=== PATIENT | female | born 1945 | race Caucasian/White ===

== ENCOUNTER 2022-02-21 23:58 | Inpatient (IN) | payer MEDICARE, MEDICAID ==
[~2022-02-21] VITALS: Ht 152.4 cm; Wt 72.6 kg
[2022-02-22] VITALS (7 sets, daily range): BP systolic 108–155
--- NOTE | 2022-02-22 00:15 | NUR ---
Patient to ER bed 4 to gown for evaluation. Side rails up. Report given to HUGO ALMAGUER(REG).
--- NOTE | 2022-02-22 00:40 | NUR ---
pt is aa&ox4. Georgian speaking. afebrile. c/o 10/10 pain on r side of the abdomen w/ n/v for the past 2 hrs. hx of HTN, NKA. kept pt clean and comfortable.
--- NOTE | 2022-02-22 00:40 | NUR ---
LISA Fried at bedside examining patient.
[2022-02-22] MEDS ORDERED: HYDROmorphone 1 MG/ML INJ. CARTRIDGE IM ONE (00:45)
[2022-02-22] MEDS ORDERED: NACL 0.9% 1,000 ML IV ONE (00:45)
[2022-02-22] MEDS ORDERED: ONDANSETRON HCL 4 MG/2 ML VIAL IVP ONE (00:45)
[2022-02-22] MEDS ORDERED: PANTOPRAZOLE SODIUM 40 MG/VIAL (PROTONIX) IVP ONE (01:00)
[2022-02-22 01:16] LABS: ANION GAP 11 (5-15); CALCIUM 8.6 mg/dL (8.4-11.0); CHLORIDE 104 mmol/L (98-107); CREATININE 1.28 mg/dL (0.55-1.30); GLUCOSE 145 mg/dL (70-99); POTASSIUM 3.2 mmol/L (3.5-5.1); UREA NITROGEN, BLOOD 25 mg/dL (8-21)
[2022-02-22 01:25] LABS: HEMATOCRIT 34.1 % (36-48); HEMOGLOBIN 11.3 g/dL (12.0-16.0); MEAN CORPUSCULAR HEMOGLOBIN 29 pg (27-31); MEAN CORPUSCULAR HGB CONC 33 % (32-36); MEAN CORPUSCULAR VOLUME 89 fL (79.0-98.0); RED BLOOD CELL COUNT(AUTO) 3.86 MIL/uL (4.2-6.2); WHITE BLOOD COUNT (AUTO) 11.3 K/uL (4.8-10.8)
[2022-02-22 01:26] LABS: PLATELET COUNT (AUTO) 281 K/uL (130-430); RED CELL DISTRIBUTION WIDTH 15.6 % (9.0-15.0)
[2022-02-22 01:28] LABS: BASOPHILS % (AUTO) 0.3 % (0.0-2.0); EOSINOPHILS # (AUTO) 0.1 K/uL (0.0-0.4); EOSINOPHILS % (AUTO) 0.6 % (0.0-4.0); LYMPHOCYTES # (AUTO) 1.1 K/uL (1.0-5.5); LYMPHOCYTES % (AUTO) 9.3 % (20.5-51.5); MONOCYTES # (AUTO) 0.5 K/uL (0.0-1.0); NEUTROPHILS # (AUTO) 9.9 K/uL (1.8-7.7); NEUTROPHILS % (AUTO) 85.8 % (40.0-70.0)
[2022-02-22 01:30] LABS: ALANINE AMINOTRANSFERASE 21 U/L (12-78); ALBUMIN 3.9 g/dL (3.4-4.8); ASPARTATE AMINOTRANSFERASE 19 U/L (10-37); LIPASE 389 U/L (73-393); TOTAL BILIRUBIN 0.1 mg/dL (0.0-1.0)
--- NOTE | 2022-02-22 01:45 | NUR ---
US being done at bedside.
[2022-02-22] MEDS ORDERED: MAGNESIUM SULFATE 50 ML IV ONE (02:15)
[2022-02-22] MEDS ORDERED: POTASSIUM CHLORIDE 20 MEQ TAB.PRT.SR PO ONE (02:15)
--- NOTE | 2022-02-22 03:10 | NUR ---
PT'S DAUGHTER LEFT AND BROUGHT PT'S BELONGINGS W/ HER. PER OLAYINKA DAUGHTER, KEEP HER UPDATED & CALL HER @ [phone]
[2022-02-22 04:05] LABS: BILIRUBIN,URINE NEGATIVE (NEGATIVE); BLOOD, URINE NEGATIVE (NEGATIVE); CLARITY/URINE CLEAR (CLEAR); COLOR,URINE YELLOW (YELLOW); GLUCOSE,URINE NEGATIVE (NEGATIVE); KETONES,URINE 1+ (NEGATIVE); LEUKOCYTE ESTERASE ,URINE 1+ (NEGATIVE); NITRITE, URINE NEGATIVE (NEGATIVE); PROTEIN URINE NEGATIVE (NEGATIVE); UROBILINOGEN,URINE 0.2 (0.2-1.0)
[2022-02-22] MEDS ORDERED: HYDROmorphone 1 MG/ML INJ. CARTRIDGE IVP ONE (04:15)
[2022-02-22 04:37] LABS: BACTERIA,URINE RARE /HPF (None Seen); RBC,URINE NONE SEEN /HPF (0-3)
[2022-02-22 04:38] LABS: MUCUS,URINE None Seen /LPF (None Seen); YEAST,URINE Rare /HPF (None Seen)
[2022-02-22] MEDS ORDERED: HYDROmorphone 1 MG/ML INJ. CARTRIDGE IVP PRN (05:00)
[2022-02-22] MEDS ORDERED: ONDANSETRON HCL 4 MG/2 ML VIAL IVP PRN (05:00)
[2022-02-22] MEDS ORDERED: ASA81 PO (05:00)
--- NOTE | 2022-02-22 05:01 | NUR ---
Admit bed requested Patient will be admitted to care of Dr. Arroyo. Admitted to md surg unit. Diagnosis Intractable Abdominal Pain Inpatient (Yes or No) YES Observation (Yes or No) NO Orientation concerns or request close to nursing station (Yes or No) NO Covid Status NEGATIVE On vent or bipap NO Isolation requirements NO Needs a sitter NO From Home (Yes or if No enter name of facility) YES Requires Dialysis (Yes or No) NO Med Rec Completed (Yes of No) YES
--- NOTE | 2022-02-22 05:03 | NUR ---
PT IN BD, ASLEEP. NAD, AFEBRILE. IV SL ON R AC INTACT, NO S/S INFILTRATION, NO PHLEBITIS. KEPT PT CLEAN & COMFORTABLE. SAFE & HAZARD FREE ENVIRONMENT PROVIDED.
--- NOTE | 2022-02-22 05:24 | NUR ---
REPORT GIVEN TO TRIPP REAL VIA PHONE FR MS
--- NOTE | 2022-02-22 05:45 | NUR ---
received from the ER. pt admitted for abd pain. pt arrived to the med/surg unit sleep yet easily to arouse. pt stated she has no c/o pain at this time. vitals taken and within normal limits. resp even while on RA 96%. skin warm to touch and clean and dry. 20g to right arm patent and intact. pt has no personal belongings with her. family took all items. educate pt how to use call light and to call if needs assistance. place bed to lowest position.
--- NOTE | 2022-02-22 05:49 | NUR ---
Patient will be admitted to care of [facility]. Admitted to mED SURG unit. Will go to room 110A. Belongings list completed. Complete and up to date summary report printed. SBAR report to be given at bedside with opportunity for questions.
--- NOTE | 2022-02-22 09:35 | NUR ---
CONSULT:Alison INTRACTABLE ABDOMINAL PAIN DR APONTE [id number] S/W:MELISSA
--- NOTE | 2022-02-22 09:37 | NUR ---
CONSULT: SURGERY INTRACTABLE ABD PAIN OLAMIDE LOVELL [id number] S/W: JAMAL
--- NOTE | 2022-02-22 10:57 | NUR ---
PAGED DR PHAN PAGED X2 FOR PAIN MED OREDER.SPOKE TO BRANDI IN EXCHANGE.WAITING FOR CALL BACK
[2022-02-22] MEDS ORDERED: HYDROmorphone 2 MG/ML VIAL IVP PRN (11:15)
--- NOTE | 2022-02-22 11:32 | NUR ---
pain PT C/O OF ABD PAIN 04/11. BP 138/92 ,RES 20, O2 SATURATION 95% ON RA. PAIN MED DILAUDID 2 MG IV PUSH GIVEN OVER 5 MINUTES. PT O2 SATURATION DROOPED TO 88%. PLACED ON 2 LITER OXYGEN PER NASAL CANNULA. RES 18.BP 132/94. 02 SATURATION 96% . DENIES ANY SOB . RES UNLABORED. NOT IN ANY ACUTE DISTRESS. DR PHAN NOTIFIED.
[2022-02-22] MEDS: D5/0.45 NS 1,000 ML IV SCH (12:00)
[2022-02-22] MEDS ORDERED: NALOXONE HCL 0.4 MG/ML AMP (NARCAN) IVP PRN (12:00)
[2022-02-22] MEDS ORDERED: DIATR MEGLU/DIATRIZ SOD 30 ML SOLUTION PO ONE (12:18)
[2022-02-22] MEDS ORDERED: iohexoL 240 mgI/mL, 50 ML INFUS..BTL IV ONE (14:08)
[2022-02-22] MEDS: PIPERACILLIN/TAZO 2.25G/DEX-IS 50 ML IV SCH ×2 (15:34→21:18)
--- NOTE | 2022-02-22 19:40 | NUR ---
PM ASSESSMENT; -Pt is laying in bed, dyspnea upon activity. room air [id number]=79%. IVF infusing well, no s/s any infiltration noted. Side rails x3, call light w/in reach. All safety measures in place. Discussed poc,all safety measures, and explained to pt not to have pain medication after midnight for HIDA scan, pt verbalized understanding. Pt is able to show good return demonstration of how to use call light when needs assistance or experiencing pain or any acute distress. Will cont to monitor pt.
--- NOTE | 2022-02-22 20:50 | NUR ---
NOTES; OH IS AT NURSES' STATION -Will check order and follow up
[2022-02-22] MEDS: HYDROmorphone 1 MG/ML INJ. CARTRIDGE IVP PRN (21:19)
--- NOTE | 2022-02-23 | NUR ---
ROUNDS; KEEP NPO STATUS AFTER MIDNIGHT PER DR. FREIRE -Pt awakes, laying in bed comfortably. Removed food and fluid after midnight after explaining Dr. Freire order, pt verbalized understanding. IVF infusing well, no s/s any infiltration noted. Side rails x3, call light w/in reach. All safety measures in place. Cont to monitor pt.
[2022-02-23 01:28] VITALS: BP_SYST 128
[2022-02-23] MEDS: D5/0.45 NS 1,000 ML IV SCH ×3 (01:28→22:42)
[2022-02-23] MEDS: HYDROmorphone 1 MG/ML INJ. CARTRIDGE IVP PRN ×4 (01:28→22:41)
--- NOTE | 2022-02-23 01:28 | NUR ---
ROUNDS; PAIN MGMT; -Assisted pt from bed to bathroom and returned to bed safely with slow steady gaits. Pt is c/o abdom pain gave Dilaudid 1mg IVP and informed pt that can't have pain medication anymore d/t HIDA scan in process, pt verbalized understanding. IVF infusing well, no s/s any infiltration noted. Side rails x3, call light w/in reach. All safety measures in place. Cont to monitor pt.
--- NOTE | 2022-02-23 02:02 | NUR ---
Consultation Paged Reason for Consultation: pre-op Was consult called: Y Person who was notified: Yuko Consulting Physician: Dr. Ocampo Ordering Physician: Dr. Mcadams
--- NOTE | 2022-02-23 04:12 | NUR ---
ROUNDS; -Pt is still asleep. No s/s acute distress noted. Bed alarmed, Side rails x2, call light w/in reach. All safety measures in place. Cont to monitor pt.
[2022-02-23] MEDS: PIPERACILLIN/TAZO 2.25G/DEX-IS 50 ML IV SCH ×3 (05:04→21:35)
--- NOTE | 2022-02-23 05:06 | NUR ---
BATHROOM; -Assisting pt from bed to bathroom and returned to bed safely with dyspnea upon exertion,placed 2l n/c oxy,i3gac=91%. IVF infusing well, no s/s any infiltration noted. Side rails x3, call light w/in reach. All safety measures in place. Cont to monitor pt.
--- NOTE | 2022-02-23 06:34 | NUR ---
CLOSING NOTES; NPO STATUS AFTER MIDNIGHT -Assisted patient from bed to bathroom and returned to bed safely. Pt is sob upon exertion. Placed pt on oxy w/ 2 L n/c oxy. IVF infusing well, no s/s any infiltration noted. Side rails x3, call light w/in reach. All safety measures in place. Pt's condition stable. Will endorse to next nurse to cont care.
[2022-02-23 06:44] LABS: BASOPHILS % (AUTO) 0.1 % (0.0-2.0); EOSINOPHILS % (AUTO) 0.1 % (0.0-4.0); HEMATOCRIT 32.5 % (36-48); HEMOGLOBIN 10.8 g/dL (12.0-16.0); LYMPHOCYTES # (AUTO) 1.2 K/uL (1.0-5.5); LYMPHOCYTES % (AUTO) 9.2 % (20.5-51.5); MEAN CORPUSCULAR HEMOGLOBIN 29 pg (27-31); MEAN CORPUSCULAR HGB CONC 33 % (32-36); MEAN CORPUSCULAR VOLUME 88 fL (79.0-98.0); MONOCYTES % (AUTO) 7.4 % (1.7-9.3); NEUTROPHILS # (AUTO) 11.3 K/uL (1.8-7.7); NEUTROPHILS % (AUTO) 83.2 % (40.0-70.0); PLATELET COUNT (AUTO) 256 K/uL (130-430); RED BLOOD CELL COUNT(AUTO) 3.69 MIL/uL (4.2-6.2); WHITE BLOOD COUNT (AUTO) 13.6 K/uL (4.8-10.8)
[2022-02-23 07:05] LABS: ANION GAP 9 (5-15); CALCIUM 8.2 mg/dL (8.4-11.0); CHLORIDE 101 mmol/L (98-107); CREATININE 1.25 mg/dL (0.55-1.30); GLUCOSE 109 mg/dL (70-99); POTASSIUM 3.9 mmol/L (3.5-5.1); UREA NITROGEN, BLOOD 20 mg/dL (8-21)
[2022-02-23] MEDS ORDERED: hydrALAZINE HCL 20 MG/ML VIAL IVP PRN (08:30)
[2022-02-23 08:53] VITALS: BP_SYST 125
[2022-02-23 09:04] LABS: ALBUMIN 3.3 g/dL (3.4-4.8); BILIRUBIN,DIRECT 0.1 mg/dL (0.0-0.3); TOTAL BILIRUBIN 0.3 mg/dL (0.0-1.0)
[2022-02-23] MEDS: IPRATROPIUM/ALBUTEROL SULFATE 3 ML AMPUL.NEB (DUONEB) INH SCH ×4 (10:50→23:13)
[2022-02-23 17:40] VITALS: BP_SYST 129
--- NOTE | 2022-02-23 17:42 | NUR ---
pt asked for pain meds and daughter is at bedside currently , meds given and will follow up
--- NOTE | 2022-02-23 18:07 | NUR ---
0800= received report dn assessed pt adn pt wa ambulating to restroom. pt tolerated well. no c/o pain at this time. care resumed 1200= pt tolerated all meds well and pt ambulated to the restroom again well. family has been here to visit on several occasions. pain meds given and pt is comfortable and care resumed . 1600= family visit again and ptis still npo waiting for hydroscan procedure to be performed. dilaudid given again and pt is comfortable now with daughter at bedside
[2022-02-23 20:00] VITALS: BP_SYST 141
[2022-02-24 00:21] VITALS: BP_SYST 131
[2022-02-24] MEDS: HYDROmorphone 1 MG/ML INJ. CARTRIDGE IVP PRN ×6 (02:46→22:57)
[2022-02-24] MEDS: IPRATROPIUM/ALBUTEROL SULFATE 3 ML AMPUL.NEB (DUONEB) INH SCH ×7 (03:00→23:10)
[2022-02-24] MEDS: PIPERACILLIN/TAZO 2.25G/DEX-IS 50 ML IV SCH ×3 (06:01→22:56)
[2022-02-24 06:38] LABS: BASOPHILS % (AUTO) 0.1 % (0.0-2.0); EOSINOPHILS % (AUTO) 0.3 % (0.0-4.0); HEMATOCRIT 30.2 % (36-48); HEMOGLOBIN 10.3 g/dL (12.0-16.0); LYMPHOCYTES # (AUTO) 1.3 K/uL (1.0-5.5); LYMPHOCYTES % (AUTO) 12.7 % (20.5-51.5); MEAN CORPUSCULAR HEMOGLOBIN 30 pg (27-31); MEAN CORPUSCULAR HGB CONC 34 % (32-36); MEAN CORPUSCULAR VOLUME 88 fL (79.0-98.0); MONOCYTES # (AUTO) 0.8 K/uL (0.0-1.0); MONOCYTES % (AUTO) 7.7 % (1.7-9.3); NEUTROPHILS # (AUTO) 7.9 K/uL (1.8-7.7); NEUTROPHILS % (AUTO) 79.2 % (40.0-70.0); PLATELET COUNT (AUTO) 233 K/uL (130-430); RED BLOOD CELL COUNT(AUTO) 3.43 MIL/uL (4.2-6.2); RED CELL DISTRIBUTION WIDTH 15.6 % (9.0-15.0); WHITE BLOOD COUNT (AUTO) 9.9 K/uL (4.8-10.8)
[2022-02-24 07:08] LABS: ALANINE AMINOTRANSFERASE 29 U/L (12-78); AMYLASE 28 U/L (0-100); ANION GAP 9 (5-15); ASPARTATE AMINOTRANSFERASE 21 U/L (10-37); CALCIUM 8.3 mg/dL (8.4-11.0); CHLORIDE 101 mmol/L (98-107); CREATININE 0.91 mg/dL (0.55-1.30); GLUCOSE 119 mg/dL (70-99); LIPASE 89 U/L (73-393); POTASSIUM 3.5 mmol/L (3.5-5.1); THYROID STIMULATING HORMONE 2.37 uIu/mL (0.36-3.74); TOTAL BILIRUBIN 0.3 mg/dL (0.0-1.0); UREA NITROGEN, BLOOD 13 mg/dL (8-21)
[2022-02-24 08:26] VITALS: BP_SYST 122
[2022-02-24 16:00] VITALS: BP_SYST 127
--- NOTE | 2022-02-24 16:40 | NUR ---
Logo Admission Assessment - Care Management Last Saved By: Jolie Weston Last Saved On: 02/24/2022 4:40 PM (PT) Created By: Jolie Weston Created On: 02/24/2022 4:39 PM (PT) Patient Information Patient Name: KACEY WORLEY [address]: [address] [place] [address] [place] [address] SSN: : 1945 (age 76 years) Work Phone: [phone] Gender: Female Alternative Phone: Marital Status: Other Race: DECLINED TO STATE Race 2: Ethnicity: or or Kinyarwanda Origin Ethnicity 2: Patient's Information Who was Interviewed? Answers: Other - Specify (Caregiver, Family, Friend etc) Notes: dtra Guillen What language does the patient speak? Answers: [place] Citizen Admitting Facility Answers: *[facility] [[id number]] Admitting Diagnosis intractable abd. pain Advanced Care Planning (check all that apply) Answers: Patient does NOT have advanced Care Planning. Additional Patient Notes covid vaccine: x2 History and Prior Level of Function DME--PRIOR to Admission: Answers: Cane Cognitive--PRIOR to Admission: Answers: Alert & Orientated Home Setting--PRIOR to Admission: Answers: Private Home Notes: [facility] lives / dtra Was patient receiving Home Health Services prior to Admission? Answers: No Potential Barriers to Discharge Anticipated Discharge Disposition Answers: Home Notes: home health to be determine at discharge good family support Does the patient have any potential barriers to DC? (indicate barrier & plan to address) Answers: NO, anticipate DC to previous living situations, no additional services anticipated Signature Signature: Signature Date Signed: 02/24/2022 4:40 PM (PT) Signed By: Jolie Weston Position: Inpatient Coating Machine Operator Helper Pager Number: Allscripts Generated (Scan) Page 1 of 2021 Giferent. [Production([id number])]
--- NOTE | 2022-02-24 16:50 | NUR ---
0730 Pt. sleeping, vss, call light in reach, awaiting HIDA scan 0900 HIDA scan machine still down, pt. taken off NPO 1200 No apparent surgery for today, vss, call light in reach 1400 Pt. sleeping, new iv site to right wrist 22 g Addendum: 02/24/22 at 1829 by [facility] [place], TRIPP ALMAGUER 1800 Pt. needs met this shift, medicated q4 for pain with good results. No n/v. Tolerating her diet. No orders for surgery. Labs for in the morning, pt. vss, no acute distress
[2022-02-24 20:00] VITALS: BP_SYST 137
[2022-02-25] VITALS: BP_SYST 128
[2022-02-25] MEDS: D5/0.45 NS 1,000 ML IV SCH ×3 (02:49→20:26)
[2022-02-25] MEDS: HYDROmorphone 1 MG/ML INJ. CARTRIDGE IVP PRN ×2 (02:49→06:42)
[2022-02-25] MEDS: IPRATROPIUM/ALBUTEROL SULFATE 3 ML AMPUL.NEB (DUONEB) INH SCH ×5 (03:00→19:50)
[2022-02-25] MEDS: PIPERACILLIN/TAZO 2.25G/DEX-IS 50 ML IV SCH ×3 (05:06→21:21)
--- NOTE | 2022-02-25 06:39 | NUR ---
CLOSING NOTE PATIENT IN BED, RESTING. NO S/S OF ACUTE DISTRESS. BREATHING EVEN AND UNLABORED. IVF INFUSING WELL. IV SITE PATENT, NO SIGNS OF INFILTRATION OR INFECTION NOTED. ALL NEEDS MET THROUGHOUT SHIFT. FALL, SAFETY PRECAUTIONS MAINTAINED THROUGHOUT SHIFT. WILL CONTINUE TO MONITOR UNTIL PATIENT CARE IS ENDORSED TO ONCOMING DAYSHIFT NURSE.
[2022-02-25 06:49] LABS: BASOPHILS % (AUTO) 0.6 % (0.0-2.0); EOSINOPHILS # (AUTO) 0.1 K/uL (0.0-0.4); EOSINOPHILS % (AUTO) 1.8 % (0.0-4.0); HEMATOCRIT 28.9 % (36-48); HEMOGLOBIN 9.8 g/dL (12.0-16.0); LYMPHOCYTES # (AUTO) 1.1 K/uL (1.0-5.5); MEAN CORPUSCULAR HEMOGLOBIN 30 pg (27-31); MEAN CORPUSCULAR HGB CONC 34 % (32-36); MEAN CORPUSCULAR VOLUME 88 fL (79.0-98.0); MONOCYTES # (AUTO) 0.7 K/uL (0.0-1.0); MONOCYTES % (AUTO) 9.8 % (1.7-9.3); NEUTROPHILS # (AUTO) 5.4 K/uL (1.8-7.7); NEUTROPHILS % (AUTO) 72.8 % (40.0-70.0); PLATELET COUNT (AUTO) 244 K/uL (130-430); RED BLOOD CELL COUNT(AUTO) 3.27 MIL/uL (4.2-6.2); RED CELL DISTRIBUTION WIDTH 15.4 % (9.0-15.0); WHITE BLOOD COUNT (AUTO) 7.4 K/uL (4.8-10.8)
--- NOTE | 2022-02-25 07:20 | NUR ---
rn opening note report was endorsed by night nurse. patient appears to be resting with both eyes closed no signs of any distress,visible breathing noted. no other needs at this time.
[2022-02-25 07:52] VITALS: BP_SYST 152
[2022-02-25 08:00] VITALS: BP_SYST 152
[2022-02-25] MEDS ORDERED: MAGNESIUM CITRATE 300 ML ORAL SOLUTION PO PRN (10:15)
--- NOTE | 2022-02-25 10:23 | NUR ---
md at bedside orders were received, family is at bedside. educated scrap iron cutter light for assistance. no other needs at this time.
[2022-02-25] MEDS ORDERED: OXYCODONE/ACETAMINOPHEN 5-325 TABLET PO PRN (10:30)
--- NOTE | 2022-02-25 11:00 | NUR ---
PAIN MEDICATION/ TRANSFERRED VIA WHEELCHAIR FOR MRI PATIENT IS COMPLAINING OF PAIN MEDICATED PER ODER. NO OTHER NEEDS AT THIS TIME.
[2022-02-25 12:00] VITALS: BP_SYST 134
--- NOTE | 2022-02-25 13:00 | NUR ---
BOWEL MOVEMENT PATIENT STATES SHE HAD A BOWEL MOVEMENT. PATIENT AMBULATED BACK TO BED GAIT IS STEADY. PATIENT EDUCATED PIPE FITTER FIRE SPRINKLER SYSTEMS LIGHT FOR ASSISTANCE. CALL LIGHT IS WITH HER NO OTHER NEEDS AT THIS TIME.
--- NOTE | 2022-02-25 14:31 | NUR ---
MEDICATION PATIENTS SCHEDULED MEDICATION GIVEN PER ORDER. PATIENT IS AWAKE AND ALERT LAYING IN BED. COMPLAINS OF ANXIETY PAGING MD FOR ORDERS. EDUCATED DELINEATOR LIGHT FOR ASSISTANCE. CALL LIGHT IS WITH HER.
--- NOTE | 2022-02-25 14:46 | NUR ---
CM: HIDA scan not in service. Per dr Montelongo: to transfer pt to the approved hp per HCP/[facility] for the test. I contacted Betty Joshua/dcp at [facility] , she is arranging the testing time and ambulance transfer. She will update me, or call nursing unit if after 1430 pm. TRIPP Esposito made aware.
[2022-02-25] MEDS: ALPRAZolam 0.25 MG TABLET PO PRN ×2 (15:13→21:21)
[2022-02-25 15:15] VITALS: BP_SYST 154
--- NOTE | 2022-02-25 15:23 | NUR ---
SPOKE WITH OUR TECH HE IS GOING TO BE ABLE TO DO HYDA SCAN TONIGHT, HE HAS TO ORDER THE MEDICATION SHOULD BE ABLE TO GET IT 3 HOURS FROM NOW. PATIENT PLACED NPO AND NO PAIN MEDICATION TO BE GIVEN. PATIENT MADE AWARE.
--- NOTE | 2022-02-25 17:29 | NUR ---
TAKEN TO HYDA SCAN VIA WHEEL CHAIR
--- NOTE | 2022-02-25 19:15 | NUR ---
OPENING NOTE REPORT RECEIVED FROM DAYSHIFT NURSE. PATIENT RECEIVED LYING IN BED, AWAKE, ALERT, WATCHING TV, NO S/S OF ACUTE DISTRESS. PATIENT JUST RECEIVED PAIN MEDICATION FROM [facility]. BREATHING EVEN AND UNLABORED. IVF INFUSING WELL, IV SITE PATENT, NO SIGNS OF INFILTRATION OR INFECTION NOTED. CALL LIGHT WITH PATIENT. BED IS LOCKED AND AT LOWEST POSITION. WILL CONTINUE TO MONITOR.
[2022-02-25] MEDS: OXYCODONE/ACETAMINOPHEN 5-325 TABLET PO PRN (19:20)
--- NOTE | 2022-02-25 19:28 | NUR ---
rn closing note report was endorsed to night nurse. patient is back from [facility] medicated for pain and provided with food per request. patient educated to use call light for assistance. call light is with her no other needs at this time.
[2022-02-25 20:00] VITALS: BP_SYST 165
--- NOTE | 2022-02-25 21:30 | NUR ---
IV INSERTED PREVIOUS IV REMOVED, CATHETER FULLY INTACT, NO ACTIVE BLEEDING NOTED. NEW IV INSERTED AT RIGHT WRIST, 20G. PATIENT TOLERATED WELL. IVF INFUSING WELL. ALL NEEDS MET. WILL CONTINUE TO MONITOR.
[2022-02-26] VITALS: BP_SYST 130
[2022-02-26] MEDS: IPRATROPIUM/ALBUTEROL SULFATE 3 ML AMPUL.NEB (DUONEB) INH SCH ×6 (00:16→23:30)
[2022-02-26] MEDS: OXYCODONE/ACETAMINOPHEN 5-325 TABLET PO PRN ×4 (01:18→21:16)
[2022-02-26] MEDS: ALPRAZolam 0.25 MG TABLET PO PRN ×2 (05:10→22:06)
[2022-02-26] MEDS: PIPERACILLIN/TAZO 2.25G/DEX-IS 50 ML IV SCH ×3 (05:10→21:17)
--- NOTE | 2022-02-26 06:19 | NUR ---
CLOSING NOTE PATIENT IN BED, RESTING WELL. NO S/S OF ACUTE DISTRESS. BREATHING EVEN AND UNLABORED. IVF INFUSING WELL. ALL NEEDS MET THROUGHOUT SHIFT. FALL, SAFETY PRECAUTIONS MAINTAINED THROUGHOUT SHIFT. WILL CONTINUE TO MONITOR UNTIL PATIENT CARE IS ENDORSED TO ONCOMING DAYSHIFT NURSE.
[2022-02-26 08:00] VITALS: BP_SYST 138
[2022-02-26] MEDS: D5/0.45 NS 1,000 ML IV SCH ×2 (09:23→22:35)
[2022-02-26 10:43] VITALS: BP_SYST 138
[2022-02-26 12:00] VITALS: BP_SYST 130
[2022-02-26 12:40] LABS: ANION GAP 4 (5-15); CALCIUM 8.3 mg/dL (8.4-11.0); CHLORIDE 106 mmol/L (98-107); CREATININE 0.78 mg/dL (0.55-1.30); GLUCOSE 99 mg/dL (70-99); POTASSIUM 3.6 mmol/L (3.5-5.1); UREA NITROGEN, BLOOD 9 mg/dL (8-21)
[2022-02-26 16:00] VITALS: BP_SYST 156
--- NOTE | 2022-02-26 19:15 | NUR ---
OPENING NOTE PATIENT RECEIVED LYING IN BED, RESTING. NO S/S OF ACUTE DISTRESS. BREATHING EVEN AND UNLABORED. IV SITE PATENT, NO SIGNS OF INFILTRATION OR INFECTION NOTED. CALL LIGHT WITH PATIENT. BED IS LOCKED AND AT LOWEST POSITION. WILL CONTINUE TO MONITOR.
[2022-02-26 20:00] VITALS: BP_SYST 152
[2022-02-27] VITALS: BP_SYST 150
[2022-02-27] MEDS: OXYCODONE/ACETAMINOPHEN 5-325 TABLET PO PRN ×2 (03:20→12:24)
[2022-02-27] MEDS: IPRATROPIUM/ALBUTEROL SULFATE 3 ML AMPUL.NEB (DUONEB) INH SCH ×3 (03:42→11:00)
[2022-02-27] MEDS: PIPERACILLIN/TAZO 2.25G/DEX-IS 50 ML IV SCH (05:37)
--- NOTE | 2022-02-27 06:24 | NUR ---
CLOSING NOTE PATIENT IN BED, NO S/S OF ACUTE DISTRESS NOTED. BREATHING EVEN AND UNLABORED. IVF INFUSING WELL, IV SITE PATENT, NO SIGNS OF INFILTRATION OR INFECTION NOTED. ALL NEEDS MET THROUGHOUT SHIFT. FALL, SAFETY PRECAUTIONS MAINTAINED THROUGHOUT SHIFT. WILL CONTINUE TO MONITOR UNTIL PATIENT CARE IS ENDORSED TO ONCOMING DAYSHIFT NURSE.
[2022-02-27 08:00] VITALS: BP_SYST 118
[2022-02-27] MEDS ORDERED: SIMETHICONE 40 MG/0.6 ML ML ONE (09:31)
[2022-02-27] MEDS ORDERED: fentaNYL CITRATE/PF 100 MCG/2 ML AMP ONE (09:31)
[2022-02-27] MEDS ORDERED: MIDAZOLAM HCL 5 MG/5 ML VIAL ONE (09:32)
[2022-02-27] MEDS ORDERED: BENZOCAINE 20% 0.5mL UD SPRAY MM ONE (09:33)
[2022-02-27 12:00] VITALS: BP_SYST 132
[2022-02-27] MEDS ORDERED: SUCRALFATE 1 GM TABLET PO ONE (12:15)
[2022-02-27] MEDS ORDERED: PANTOPRAZOLE SODIUM 40 MG TAB PO ONE (12:15)
[2022-02-27 14:38] VITALS: BP_SYST 137
[2022-02-27] MEDS ORDERED: SUCRALFATE 1 GM TABLET PO SCH (17:00)
[2022-02-27] MEDS ORDERED: PANTOPRAZOLE SODIUM 40 MG TAB PO SCH (21:00)
== END 2022-02-27 15:40 | disposition home or self-care (01) | DRG 384 ==
LOC: SED 23:58 → SMU 02-22 04:51
PROVIDERS: ADMIT Internal Medicine; ATTEND Internal Medicine
PROC: 0DB78ZX Excision of Stomach, Pylorus, Via Natural or Artificial Opening Endoscopic, Diagnostic (ICD-10-PCS; 2022-02-27)
PROC: 0DB98ZX Excision of Duodenum, Via Natural or Artificial Opening Endoscopic, Diagnostic (ICD-10-PCS; principal; 2022-02-27 11:30)
DX: K25.9 Gastric ulcer, unspecified as acute or chronic, without hemorrhage or perforation (principal); K59.00 Constipation, unspecified; K29.60 Other gastritis without bleeding; K29.80 Duodenitis without bleeding; G43.909 Migraine, unspecified, not intractable, without status migrainosus; E66.01 Morbid (severe) obesity due to excess calories; E03.9 Hypothyroidism, unspecified; K44.9 Diaphragmatic hernia without obstruction or gangrene; I10 Essential (primary) hypertension; D72.829 Elevated white blood cell count, unspecified; J44.9 Chronic obstructive pulmonary disease, unspecified; F17.200 Nicotine dependence, unspecified, uncomplicated; Z20.822 Contact with and (suspected) exposure to COVID-19; K82.8 Other specified diseases of gallbladder; Z79.82 Long term (current) use of aspirin; Z79.899 Other long term (current) drug therapy; Z68.31 Body mass index [BMI] 31.0-31.9, adult; Z87.11 Personal history of peptic ulcer disease; Z90.710 Acquired absence of both cervix and uterus
CPT/HCPCS: 36415; 43239; 71045; 74181; 76376; 76705; 78226; 80048; 80053; 80076; 81000; 82150; 83605; 83690; 83880; 84443; 84484; 85025; 87081; 88305; 88312; 88313; 93005; 93306; 94640; 94760; 96372; 96374; 96375; 99285; A9537; C9113; J0360; J1170; J2250; J2405; J2543; J3010; J3475; Q9964; Q9966; Q9967

== ENCOUNTER 2023-11-28 18:29 | Inpatient (IN) | payer MEDICARE, MEDICAID ==
[~2023-11-28] VITALS: Ht 152.4 cm; Wt 72.2 kg
[2023-11-28 18:31] VITALS: BP_SYST 118; PULSE 98; RESP 20; TEMP 98.2; O2SAT 95
[2023-11-28 19:12] LABS: BASOPHILS # (AUTO) 0.1 K/uL (0.0-0.2); BASOPHILS % (AUTO) 0.9 % (0.0-2.0); EOSINOPHILS # (AUTO) 0.1 K/uL (0.0-0.4); EOSINOPHILS % (AUTO) 1.2 % (0.0-4.0); HEMATOCRIT 34.3 % (36-48); HEMOGLOBIN 11.3 g/dL (12.0-16.0); LYMPHOCYTES % (AUTO) 26.2 % (20.5-51.5); MEAN CORPUSCULAR HEMOGLOBIN 26 pg (27-31); MEAN CORPUSCULAR HGB CONC 33 % (32-36); MEAN CORPUSCULAR VOLUME 80 fL (79.0-98.0); MONOCYTES # (AUTO) 0.6 K/uL (0.0-1.0); MONOCYTES % (AUTO) 8.6 % (1.7-9.3); NEUTROPHILS # (AUTO) 4.7 K/uL (1.8-7.7); NEUTROPHILS % (AUTO) 63.1 % (40.0-70.0); PLATELET COUNT (AUTO) 426 K/uL (130-430); RED BLOOD CELL COUNT(AUTO) 4.28 MIL/uL (4.2-6.2); RED CELL DISTRIBUTION WIDTH 16.5 % (9.0-15.0); WHITE BLOOD COUNT (AUTO) 7.5 K/uL (4.8-10.8)
[2023-11-28 19:25] LABS: PROTHROMBIN TIME 10.7 SECS (9.5-12.5)
[2023-11-28] MEDS: IPRATROPIUM/ALBUTEROL SULFATE 3 ML AMPUL.NEB (DUONEB) INH ONE (19:25)
[2023-11-28 19:30] LABS: ANION GAP 10 (5-15); CALCIUM 8.7 mg/dL (8.4-11.0); CARBON DIOXIDE 27 mmol/L (23-29); CHLORIDE 106 mmol/L (98-107); CREATININE 1.05 mg/dL (0.55-1.30); GLUCOSE 131 mg/dL (74-106); POTASSIUM 3.4 mmol/L (3.5-5.1); SODIUM SERUM 143 mmol/L (136-145); UREA NITROGEN, BLOOD 17 mg/dL (8-21)
[2023-11-28] MEDS: methylPREDNISolone SOD SUCC/PF 62.5 MG/ML VIAL IVP ONE (19:39)
[2023-11-28] MEDS: ACETAMINOPHEN 325 MG TABLET PO ONE (19:41)
[2023-11-28] MEDS: ONDANSETRON HCL 4 MG/2 ML VIAL IVP ONE (21:17)
[2023-11-28] MEDS: ALBUTEROL SULFATE 0.083% 2.5 MG/3 ML VIAL.NEB INH ONE (21:29)
[2023-11-28] MEDS ORDERED: METHYLPREDNISOLONE SOD SUCC 40 MG/ML VIAL IVP SCH (22:00)
[2023-11-28] MEDS ORDERED: HYDROcodone/ACETAMIN 10-325 MG TAB PO PRN ×2 (22:00→23:45)
[2023-11-28] MEDS ORDERED: ACETAMINOPHEN 325 MG TABLET PO PRN (22:00)
[2023-11-28] MEDS ORDERED: ALBMDI INH (22:20)
[2023-11-28] MEDS ORDERED: BUTA1CAP43 PO (22:20)
[2023-11-28 22:36] LABS: INFLUENZA TYPE A Negative (NEGATIVE); INFLUENZA TYPE B NEGATIVE (NEGATIVE)
[2023-11-28 22:37] LABS: COVID19 ANTIGEN SOFIA FIA NEGATIVE (NEGATIVE)
[2023-11-28 22:44] LABS: RESPIRATORY SYNCYTIAL VIRUS NEGATIVE (NEGATIVE)
[2023-11-28] MEDS: HYDROcodone/ACETAMIN 5-325 MG TAB (NORCO/ VICODIN) PO PRN (22:53)
[2023-11-28 23:44] VITALS: BP_SYST 126; PULSE 83; RESP 18; TEMP 98
[2023-11-29] VITALS (14 sets, daily range): BP systolic 98–134; PULSE 72–92; RESP 18; TEMP 79.2–99; O2SAT 91–99
[2023-11-29] MEDS: traZODone HCL 50 MG TABLET (DESYREL) PO PRN (00:47)
[2023-11-29] MEDS: ACETAMINOPHEN 325 MG TABLET PO PRN (01:57)
[2023-11-29] MEDS: IPRATROPIUM/ALBUTEROL SULFATE 3 ML AMPUL.NEB (DUONEB) INH SCH (03:36)
[2023-11-29] MEDS: METHYLPREDNISOLONE SOD SUCC 40 MG/ML VIAL IVP SCH (08:21)
[2023-11-29] MEDS ORDERED: AZITHROMYCIN 500 MG in NS 250 ML IV SCH (08:45)
[2023-11-29] MEDS: ONDANSETRON HCL 4 MG/2 ML VIAL IVP PRN (09:31)
[2023-11-29 10:24] LABS: BASOPHILS % (AUTO) 0.3 % (0.0-2.0); HEMATOCRIT 32.7 % (36-48); HEMOGLOBIN 10.8 g/dL (12.0-16.0); LYMPHOCYTES # (AUTO) 1.1 K/uL (1.0-5.5); MEAN CORPUSCULAR HEMOGLOBIN 27 pg (27-31); MEAN CORPUSCULAR HGB CONC 33 % (32-36); MEAN CORPUSCULAR VOLUME 80 fL (79.0-98.0); MONOCYTES # (AUTO) 0.5 K/uL (0.0-1.0); MONOCYTES % (AUTO) 6.3 % (1.7-9.3); NEUTROPHILS # (AUTO) 6.3 K/uL (1.8-7.7); NEUTROPHILS % (AUTO) 79.4 % (40.0-70.0); PLATELET COUNT (AUTO) 398 K/uL (130-430); RED BLOOD CELL COUNT(AUTO) 4.06 MIL/uL (4.2-6.2); RED CELL DISTRIBUTION WIDTH 16.9 % (9.0-15.0)
[2023-11-29] MEDS: AZITHROMYCIN 500 MG in NS 250 ML IV SCH (11:59)
[2023-11-29] MEDS: HYDROcodone/ACETAMIN 5-325 MG TAB (NORCO/ VICODIN) PO PRN (12:08)
[2023-11-29 12:12] LABS: ALANINE AMINOTRANSFERASE 26 U/L (12-78); ALBUMIN 3.6 g/dL (3.4-4.8); ANION GAP 11 (5-15); ASPARTATE AMINOTRANSFERASE 13 U/L (10-37); CALCIUM 8.8 mg/dL (8.4-11.0); CARBON DIOXIDE 26 mmol/L (23-29); CHLORIDE 102 mmol/L (98-107); CREATININE 1.23 mg/dL (0.55-1.30); GLUCOSE 222 mg/dL (74-106); POTASSIUM 3.4 mmol/L (3.5-5.1); SODIUM SERUM 139 mmol/L (136-145); TOTAL BILIRUBIN 0.2 mg/dL (0.0-1.0); TOTAL PROTEIN, SERUM 7.1 g/dL (6.4-8.3); UREA NITROGEN, BLOOD 26 mg/dL (8-21)
[2023-11-29] MEDS: NORMAL SALINE 5 ML DISP.SYRIN IVF SCH (13:38)
[2023-11-29] MEDS: ACETAMINOPHEN PO SCH (21:00)
[2023-11-29] MEDS: BUTALB PO SCH (21:00)
[2023-11-29] MEDS: CAFFEINE PO SCH (21:00)
[2023-11-30] VITALS (9 sets, daily range): BP systolic 102–133; PULSE 82–90; RESP 17–18; TEMP 97.4–98.2; O2SAT 88–96
[2023-11-30 05:51] LABS: BASOPHILS % (AUTO) 0.2 % (0.0-2.0); HEMATOCRIT 30.3 % (36-48); LYMPHOCYTES # (AUTO) 1.2 K/uL (1.0-5.5); LYMPHOCYTES % (AUTO) 13.3 % (20.5-51.5); MEAN CORPUSCULAR HEMOGLOBIN 27 pg (27-31); MEAN CORPUSCULAR HGB CONC 33 % (32-36); MEAN CORPUSCULAR VOLUME 81 fL (79.0-98.0); MONOCYTES # (AUTO) 0.5 K/uL (0.0-1.0); MONOCYTES % (AUTO) 5.7 % (1.7-9.3); NEUTROPHILS # (AUTO) 7.3 K/uL (1.8-7.7); NEUTROPHILS % (AUTO) 80.8 % (40.0-70.0); PLATELET COUNT (AUTO) 387 K/uL (130-430); RED BLOOD CELL COUNT(AUTO) 3.76 MIL/uL (4.2-6.2); RED CELL DISTRIBUTION WIDTH 16.8 % (9.0-15.0)
[2023-11-30 06:24] LABS: ANION GAP 9 (5-15); CALCIUM 8.3 mg/dL (8.4-11.0); CARBON DIOXIDE 27 mmol/L (23-29); CHLORIDE 107 mmol/L (98-107); CREATININE 1.04 mg/dL (0.55-1.30); GLUCOSE 148 mg/dL (74-106); POTASSIUM 3.7 mmol/L (3.5-5.1); SODIUM SERUM 143 mmol/L (136-145); UREA NITROGEN, BLOOD 21 mg/dL (8-21)
[2023-11-30] MEDS ORDERED: METH-776 PO (10:15)
[2023-11-30] MEDS ORDERED: AZIT500T PO (10:15)
[2023-11-30] MEDS: LORazepam 2 MG/ML VIAL IVP PRN (13:55)
== END 2023-11-30 14:30 | disposition home or self-care (01) | DRG 189 ==
LOC: SED 18:29 → STU 21:57 → SMU 11-29 12:15
PROVIDERS: ADMIT Preventive Medicine Preventive Medicine/Occupational Environmental Medicine; ATTEND Preventive Medicine Preventive Medicine/Occupational Environmental Medicine
DX: J96.00 Acute respiratory failure, unspecified whether with hypoxia or hypercapnia (principal); J43.9 Emphysema, unspecified; D64.9 Anemia, unspecified; E87.6 Hypokalemia; J98.01 Acute bronchospasm; R73.9 Hyperglycemia, unspecified; Z79.899 Other long term (current) drug therapy
CPT/HCPCS: 36415; 71045; 80048; 80053; 83880; 84484; 85025; 85379; 85610; 85730; 87420; 93005; 94640; 94760; 96374; 96375; 99285; G0378; J0456; J1030; J2060; J2405; J2930; J7050